=== PATIENT | female | born 1975 | race Hispanic/Latino ===

== ENCOUNTER 2022-01-18 23:54 | Emergency (ER) | payer SELFPAY ==
[~2022-01-18] VITALS: Ht 167.6 cm; Wt 82.0 kg
[~2022-01-18 23:54] MED LIST: NO HOME MEDS; NORCO1 TA1 PO; PENICILLN VK500 MG PO; PYRIDIUM200 MG OR
[2022-01-19 00:56] LABS: HEMATOCRIT 41.7 % (37.0-47.0); HEMOGLOBIN 13.5 g/dl (12.0-16.0); IMMATURE GRANULOCYTES 0.3 % (0.0-5.0); MEAN CELL VOLUME 94.1 fL CALC (80.0-100.0); MEAN CORPUSCULAR HGB 30.5 pG CALC (26.0-32.0); MEAN CORPUSCULAR HGB CONC 32.4 g/dL CAL (32.0-36.0); NEUT# 4.07 thou/uL (2.00-7.15); RED BLOOD COUNT 4.43 mill/uL (4.20-5.60); RED CELL DISTRI WIDTH 12.5 % (11.5-15.5)
[2022-01-19 01:30] LABS: ALBUMIN 4.4 g/dL (3.2-5.0); ALKALINE PHOSPHATASE 114 u/l (38-126); ANION GAP 15 (6-22 (CALC)); BUN 13 mg/dL (7-17); BUN/CREATININE RATIO 19 (12-20 (CALC)); CARBON DIOXIDE 25 mmol/l (22-30); CHLORIDE 104 mmol/l (95-108); CREATININE 0.7 mg/dL (0.5-1.0); GFR > 60 ML/MIN (>=60 (CALC)); GFR FOR AFR.AMER. > 60 ML/MIN (>=60 (CALC)); LIPASE 185 u/l (23-300); SGOT/AST 28 u/l (14-36); SODIUM 139 mmol/l (137-146); TOTAL PROTEIN 8.8 g/dL (6.3-8.2)
[2022-01-19 01:32] LABS: BILIRUBIN, TOTAL 0.3 mg/dL (0.0-1.4)
[2022-01-19 01:34] LABS: ACT PARTIAL THROMBO TIME 20.6 SECONDS (20.0-32.5); INTERNATIONAL NORMALIZED RATIO 0.9 RATIO (0.7-1.3); PROTHROMBIN TIME 9.9 SECONDS (9.0-12.5)
[2022-01-19] MEDS ORDERED: ZOFRAN4 MG/TAB PO (02:12)
[2022-01-19] MEDS ORDERED: TORADOL PO (02:12)
[2022-01-19 03:43] VITALS: BP 123/82
== END 2022-01-19 03:45 | disposition home or self-care (01) | DRG 103 ==
LOC: ED 23:54
DX: G43.909 Migraine, unspecified, not intractable, without status migrainosus (principal); Z20.822 Contact with and (suspected) exposure to COVID-19